=== PATIENT | female | born 1980 | race Caucasian/White ===

== ENCOUNTER 2017-12-15 03:00 | Observation (INO) | payer BC ==
[~2017-12-15] VITALS: Ht 167.6 cm; Wt 52.5 kg
[2017-12-15] MEDS ORDERED: LIDOCAINE-MPF 2% ,5ML ONE ×2 (04:02→04:49)
[2017-12-15] MEDS ORDERED: MORPHINE SULFATE 4 MG/ML, 1ML ONE ×2 (06:48→17:06)
[2017-12-15] MEDS ORDERED: ONDANSETRON 2MG/ML, 2ML IVPush PRN (07:00)
[2017-12-15] MEDS ORDERED: MORPHINE SULFATE 4 MG/ML, 1ML IVPush PRN ×2 (07:00→16:30)
[2017-12-15 08:20] VITALS: BP 95/59
[2017-12-15 14:40] VITALS: BP 119/76
[2017-12-15] MEDS ORDERED: MEPERIDINE/PF 50 MG/ML ONE (14:53)
[2017-12-15 14:55] LABS: HCG UR SG 1.025 (1.003-1.030)
[2017-12-15] MEDS ORDERED: MIDAZOLAM 1 MG/ML, 2ML ONE (16:09)
[2017-12-15] MEDS ORDERED: FENTANYL PF 250 MCG/5ML ONE (16:10)
[2017-12-15] MEDS ORDERED: PROPOFOL 10 MG/ML, 20ML ONE (16:11)
[2017-12-15] MEDS ORDERED: CEFAZOLIN 1,000 MG ONE ×2 (16:12)
[2017-12-15] MEDS ORDERED: WATER-INJECTION,STERILE 10 ML IV ONE (16:12)
[2017-12-15] MEDS ORDERED: OXYcodone 5 MG/5 ML ORAL.SOL UDC PO PRN (16:30)
[2017-12-15] MEDS ORDERED: PROMETHAZINE 12.5 MG SUPP PR PRN (16:30)
[2017-12-15] MEDS ORDERED: PROMETHAZINE 25 MG SUPP PR PRN (16:30)
[2017-12-15] MEDS ORDERED: MEPERIDINE/PF 25MG/0.5ML IVPush PRN (16:30)
[2017-12-15] MEDS ORDERED: LABETALOL 5MG/ML, 20ML IV PRN (16:30)
[2017-12-15] MEDS ORDERED: FENTANYL PF 100 MCG/2ML IV PRN (16:30)
[2017-12-15] MEDS ORDERED: hydrALAzine 20 MG/ML, 1ML IV PRN (16:30)
[2017-12-15] MEDS ORDERED: ONDANSETRON ODT 8 MG PO PRN (16:30)
[2017-12-15] MEDS ORDERED: PROMETHAZINE 25 MG/ML, 1ML IV PRN (16:30)
[2017-12-15] MEDS ORDERED: HYDROmorphone 1 MG/ML, 1ML IV PRN (16:30)
[2017-12-15] MEDS ORDERED: ONDANSETRON 2MG/ML, 2ML ONE (16:31)
[2017-12-15] MEDS ORDERED: DEXAMETHASONE 4 MG/ML, 1ML ONE ×2 (16:31)
[2017-12-15] MEDS ORDERED: OXYcodone 5 MG/5 ML ORAL.SOL UDC ONE (17:06)
[2017-12-15] MEDS ORDERED: FENTANYL PF 100 MCG/2ML ONE (17:20)
[2017-12-15 17:45] VITALS: BP 106/63
[2017-12-15] MEDS ORDERED: ONDANSETRON ODT 4 MG PO PRN (20:00)
[2017-12-15] MEDS ORDERED: OXYcodone IR 5MG TABLET PO PRN (20:00)
[2017-12-15 20:48] VITALS: BP 100/80
[2017-12-15] MEDS ORDERED: OXYC5TAB3 PO (23:34)
[2017-12-16 00:11] VITALS: BP 103/59
[2017-12-16 04:29] VITALS: BP 94/48
== END 2017-12-16 07:00 | disposition home or self-care (01) ==
LOC: ED 05:58 → EDIP 06:58 → 4NOR 08:10
PROVIDERS: ADMIT Orthopaedic Surgery; ATTEND Orthopaedic Surgery
DX: S91.341A Puncture wound with foreign body, right foot, initial encounter (principal); W20.8XXA Other cause of strike by thrown, projected or falling object, initial encounter; Y93.89 Activity, other specified; Y92.89 Other specified places as the place of occurrence of the external cause; Y99.8 Other external cause status
CPT/HCPCS: 28192; 73620; 73630; 76000; 81025; 99285; G0378; J0690; J1100; J2250; J2405; J2704; J3010; Q0162

== ENCOUNTER 2019-12-29 19:28 | Emergency (ER) | payer BC ==
[~2019-12-29] VITALS: Ht 167.6 cm; Wt 50.3 kg
[~2019-12-29 19:28] MED LIST: OXYC5TAB3 PO
[2019-12-29 19:34] VITALS: BP 99/68
== END 2019-12-29 21:14 | disposition home or self-care (01) ==
LOC: ED 21:12
DX: S93.491A Sprain of other ligament of right ankle, initial encounter (principal); W01.0XXA Fall on same level from slipping, tripping and stumbling without subsequent striking against object, initial encounter; Y93.89 Activity, other specified; Y92.009 Unspecified place in unspecified non-institutional (private) residence as the place of occurrence of the external cause; Y99.8 Other external cause status
CPT/HCPCS: 99284